=== PATIENT | male | born 1975 | race Caucasian/White ===

== ENCOUNTER 2019-03-03 12:09 | Inpatient (IN) | payer OTHER ==
[2019-03-03 12:45] LABS: ADD MAN DIFF? NO
[2019-03-03 12:52] LABS: BASOPHIL # 0.1 10^3/ul (0.0-0.1); BASOPHILS % 0.6 % (0.0-2.0); EOSINOPHILS # 0.3 10^3/ul (0.0-0.5); EOSINOPHILS % 2.5 % (0.0-7.0); HEMATOCRIT 37.4 % (42.0-52.0); HEMOGLOBIN 11.4 g/dl (14.0-18.0); LYMPHOCYTES # 2.3 10^3/ul (0.8-2.9); MEAN CORPUSCULAR HEMOGLOBIN 27.5 pg (29.0-33.0); MEAN CORPUSCULAR HGB CONC 30.5 g/dl (32.0-37.0); MEAN CORPUSCULAR VOLUME 90.1 fl (82.0-101.0); MEAN PLATELET VOLUME 11.2 fl (7.4-10.4); MONOCYTE # 0.6 10^3/ul (0.3-0.9); MONOCYTES % 6.3 % (0.0-11.0); NEUTROPHIL # 6.8 10^3/ul (1.6-7.5); NEUTROPHILS % 66.9 % (39.0-77.0); PLATELET COUNT 262 10^3/UL (140-415); RED BLOOD COUNT 4.15 10^6/ul (4.70-6.10)
[2019-03-03 12:52] LABS: WHITE BLOOD COUNT 10.1 10^3/ul (4.8-10.8)
[2019-03-03] MEDS ORDERED: ONDANSETRON 4 MG INJ IV ×2 (13:00→16:30)
[2019-03-03] MEDS ORDERED: ACETAMINOPHEN 325 MG TAB PO (13:00)
[2019-03-03 13:12] LABS: INR 0.97
[2019-03-03 13:13] LABS: PARTIAL THROMBOPLASTIN TIME 37.6 Sec (23.0-35.0)
[2019-03-03 13:18] LABS: ANION GAP 11 (5-13); BLOOD UREA NITROGEN 23 mg/dl (7-20); CALCIUM 9.5 mg/dl (8.4-10.2); CARBON DIOXIDE 26 mmol/L (21-31); CHLORIDE 105 mmol/L (97-110); CREATININE 0.55 mg/dl (0.61-1.24); Estimated GFR > 60 mL/min (>60); GLUCOSE 91 mg/dl (70-220); POTASSIUM 4.2 mmol/L (3.5-5.1); SODIUM 142 mmol/L (135-144)
[2019-03-03] MEDS ORDERED: NACL 0.9% 3 ML SYG IV (16:30)
[2019-03-03] MEDS ORDERED: DOCUSATE SODIUM 100 MG CAP PO ×2 (16:30→21:00)
[2019-03-03] MEDS ORDERED: LEVETIRACETAM (100 MG/ML PO SYG) GTB (16:30)
[2019-03-03] MEDS: LEVETIRACETAM (100 MG/ML) 5ML CUP GTB (21:00)
[2019-03-03] MEDS ORDERED: FAMOTIDINE 20 MG TAB PO (21:00)
[2019-03-03] MEDS: DOCUSATE SODIUM 10 MG/ML (10ML CUP) GTB (21:00)
[2019-03-03] MEDS: FAMOTIDINE 20 MG TAB GTB (21:00)
[2019-03-03] MEDS: CHLORHEXIDINE GLUCONATE 15 ML UD CUP MM (21:01)
[2019-03-04] MEDS: ACETAMINOPHEN 325 MG TAB PO ×3 (00:36→20:30)
[2019-03-04] MEDS: CHLORHEXIDINE GLUCONATE 15 ML UD CUP MM ×2 (04:30→15:36)
[2019-03-04] MEDS ORDERED: PENDING SANTYL ORDER FOR WOUND CARE XX (06:00)
[2019-03-04 06:21] LABS: ADD MAN DIFF? NO
[2019-03-04] MEDS: LEVETIRACETAM (100 MG/ML) 5ML CUP GTB ×3 (06:26→23:04)
[2019-03-04 06:28] LABS: WHITE BLOOD COUNT 10.4 10^3/ul (4.8-10.8)
[2019-03-04 06:28] LABS: BASOPHIL # 0.1 10^3/ul (0.0-0.1); BASOPHILS % 0.6 % (0.0-2.0); EOSINOPHILS # 0.2 10^3/ul (0.0-0.5); HEMATOCRIT 34.7 % (42.0-52.0); HEMOGLOBIN 10.8 g/dl (14.0-18.0); LYMPHOCYTES # 2.5 10^3/ul (0.8-2.9); LYMPHOCYTES % 23.6 % (15.0-51.0); MEAN CORPUSCULAR HGB CONC 31.1 g/dl (32.0-37.0); MEAN CORPUSCULAR VOLUME 89.9 fl (82.0-101.0); MEAN PLATELET VOLUME 11.4 fl (7.4-10.4); MONOCYTE # 0.7 10^3/ul (0.3-0.9); MONOCYTES % 6.8 % (0.0-11.0); NEUTROPHIL # 6.9 10^3/ul (1.6-7.5); NEUTROPHILS % 66.4 % (39.0-77.0); PLATELET COUNT 262 10^3/UL (140-415); RED BLOOD COUNT 3.86 10^6/ul (4.70-6.10); RED CELL DISTRIBUTION WIDTH 16.1 % (11.5-14.5)
[2019-03-04 06:54] LABS: ANION GAP 13 (5-13); BLOOD UREA NITROGEN 25 mg/dl (7-20); CALCIUM 9.1 mg/dl (8.4-10.2); CARBON DIOXIDE 23 mmol/L (21-31); CHLORIDE 108 mmol/L (97-110); CREATININE 0.62 mg/dl (0.61-1.24); Estimated GFR > 60 mL/min (>60); GLUCOSE 86 mg/dl (70-220); SODIUM 144 mmol/L (135-144)
[2019-03-04] MEDS ORDERED: LIDOCAINE 1%/EPI (1:100,000) (MDV) 20 ML INJ (07:00)
[2019-03-04] MEDS ORDERED: SILVER NITRATE SWAB TOP (07:00)
[2019-03-04] MEDS: MULTIVITAMINS/MINERALS TAB PO (09:43)
[2019-03-04] MEDS: ASPIRIN (EC) 81 MG TAB PO (09:43)
[2019-03-04] MEDS: FAMOTIDINE 20 MG TAB GTB ×2 (09:43→20:30)
[2019-03-04] MEDS: ASCORBIC ACID 500 MG TAB GTB (09:43)
[2019-03-04] MEDS: ENOXAPARIN 30 MG/0.3 ML SYG SC (10:06)
[2019-03-04] MEDS: SODIUM CHLORIDE 0.45% 500 ML BAG IV* (16:09)
[2019-03-04] MEDS: DOCUSATE SODIUM 10 MG/ML (10ML CUP) GTB (20:29)
[2019-03-04] MEDS: BALSAM PERU/CASTOR OIL 60 GM TUBE TOP (20:29)
[2019-03-05] MEDS: CHLORHEXIDINE GLUCONATE 15 ML UD CUP MM ×2 (04:47→16:43)
[2019-03-05] MEDS: LEVETIRACETAM (100 MG/ML) 5ML CUP GTB ×3 (05:57→21:21)
[2019-03-05 06:14] LABS: ADD MAN DIFF? NO
[2019-03-05 06:25] LABS: WHITE BLOOD COUNT 9.2 10^3/ul (4.8-10.8)
[2019-03-05 06:25] LABS: BASOPHIL # 0.1 10^3/ul (0.0-0.1); BASOPHILS % 0.8 % (0.0-2.0); EOSINOPHILS # 0.2 10^3/ul (0.0-0.5); EOSINOPHILS % 2.3 % (0.0-7.0); HEMATOCRIT 36.8 % (42.0-52.0); HEMOGLOBIN 11.3 g/dl (14.0-18.0); LYMPHOCYTES # 2.7 10^3/ul (0.8-2.9); LYMPHOCYTES % 29.5 % (15.0-51.0); MEAN CORPUSCULAR HEMOGLOBIN 27.4 pg (29.0-33.0); MEAN CORPUSCULAR HGB CONC 30.7 g/dl (32.0-37.0); MEAN CORPUSCULAR VOLUME 89.1 fl (82.0-101.0); MEAN PLATELET VOLUME 11.1 fl (7.4-10.4); MONOCYTE # 0.7 10^3/ul (0.3-0.9); MONOCYTES % 8.1 % (0.0-11.0); NEUTROPHIL # 5.4 10^3/ul (1.6-7.5); NEUTROPHILS % 58.8 % (39.0-77.0); PLATELET COUNT 268 10^3/UL (140-415); RED BLOOD COUNT 4.13 10^6/ul (4.70-6.10); RED CELL DISTRIBUTION WIDTH 16.2 % (11.5-14.5)
[2019-03-05 06:46] LABS: ANION GAP 11 (5-13); BLOOD UREA NITROGEN 28 mg/dl (7-20); CALCIUM 9.2 mg/dl (8.4-10.2); CARBON DIOXIDE 23 mmol/L (21-31); CHLORIDE 108 mmol/L (97-110); CREATININE 0.57 mg/dl (0.61-1.24); Estimated GFR > 60 mL/min (>60); GLUCOSE 106 mg/dl (70-220); POTASSIUM 3.9 mmol/L (3.5-5.1); SODIUM 142 mmol/L (135-144)
[2019-03-05] MEDS: ASPIRIN (EC) 81 MG TAB PO (09:08)
[2019-03-05] MEDS: MULTIVITAMINS/MINERALS TAB PO (09:08)
[2019-03-05] MEDS: BALSAM PERU/CASTOR OIL 60 GM TUBE TOP (09:08)
[2019-03-05] MEDS: FAMOTIDINE 20 MG TAB GTB ×2 (09:08→21:21)
[2019-03-05] MEDS: ASCORBIC ACID 500 MG TAB GTB (09:08)
[2019-03-05] MEDS: ENOXAPARIN 30 MG/0.3 ML SYG SC (09:15)
[2019-03-05 09:17] LABS: ADD UMIC YES; UR ASCORBIC ACID NEGATIVE (NEGATIVE); UR BACTERIA FEW /HPF (NONE SEEN); UR BILIRUBIN (Dip) NEGATIVE (NEGATIVE); UR BLOOD (Dip) NEGATIVE (NEGATIVE); UR CLARITY TURBID (CLEAR); UR COLOR YELLOW (YELLOW); UR GLUCOSE (Dip) NEGATIVE (NEGATIVE); UR KETONES (Dip) NEGATIVE (NEGATIVE); UR LEUKOCYTE ESTERASE (Dip) 2+ Leu/ul (NEGATIVE); UR NITRITE (Dip) POSITIVE (NEGATIVE); UR RBC > 182 /HPF (0-5); UR SPECIFIC GRAVITY (Dip) 1.022 (1.003-1.030); UR SQUAMOUS EPITHELIAL CELL MANY /HPF (FEW); UR TOTAL PROTEIN (Dip) 3+ mg/dl (NEGATIVE); UR UROBILINOGEN (Dip) NEGATIVE (NEGATIVE); UR WBC 118 /HPF (0-5)
[2019-03-05] MEDS: CEFTRIAXONE 1 GM/50 ML (PMX) 50 ML IVPB (10:52)
[2019-03-05] MEDS: morphine 2 MG INJ IV (13:17)
[2019-03-05] MEDS: LORAZEPAM 2 MG INJ IV (13:17)
[2019-03-05] MEDS: DOCUSATE SODIUM 10 MG/ML (10ML CUP) GTB (21:21)
[2019-03-05] MEDS: CEFEPIME 1GM/50 ML (PMX) 50 ML IVPB (21:21)
[2019-03-06] MEDS: CHLORHEXIDINE GLUCONATE 15 ML UD CUP MM ×2 (04:40→16:47)
[2019-03-06] MEDS ORDERED: VANCOMYCIN IV PER PHARMACY XX (05:00)
[2019-03-06] MEDS: VANCOMYCIN HCL 1.25 GM in SOD CHLORIDE 0.9% 250 ML IVPB (06:05)
[2019-03-06] MEDS: LEVETIRACETAM (100 MG/ML) 5ML CUP GTB ×3 (06:05→21:33)
[2019-03-06 08:36] LABS: ADD MAN DIFF? NO; BASOPHIL # 0.1 10^3/ul (0.0-0.1); BASOPHILS % 0.5 % (0.0-2.0); EOSINOPHILS # 0.2 10^3/ul (0.0-0.5); EOSINOPHILS % 2.2 % (0.0-7.0); HEMATOCRIT 31.9 % (42.0-52.0); HEMOGLOBIN 9.8 g/dl (14.0-18.0); LYMPHOCYTES # 1.4 10^3/ul (0.8-2.9); MEAN CORPUSCULAR HEMOGLOBIN 27.6 pg (29.0-33.0); MEAN CORPUSCULAR HGB CONC 30.7 g/dl (32.0-37.0); MEAN CORPUSCULAR VOLUME 89.9 fl (82.0-101.0); MEAN PLATELET VOLUME 10.3 fl (7.4-10.4); MONOCYTE # 0.6 10^3/ul (0.3-0.9); MONOCYTES % 6.7 % (0.0-11.0); NEUTROPHIL # 7.1 10^3/ul (1.6-7.5); NEUTROPHILS % 75.2 % (39.0-77.0); PLATELET COUNT 234 10^3/UL (140-415); RED BLOOD COUNT 3.55 10^6/ul (4.70-6.10); RED CELL DISTRIBUTION WIDTH 15.9 % (11.5-14.5)
[2019-03-06 08:36] LABS: WHITE BLOOD COUNT 9.4 10^3/ul (4.8-10.8)
[2019-03-06 09:00] LABS: ANION GAP 11 (5-13); BLOOD UREA NITROGEN 21 mg/dl (7-20); CALCIUM 8.6 mg/dl (8.4-10.2); CARBON DIOXIDE 23 mmol/L (21-31); CHLORIDE 107 mmol/L (97-110); CREATININE 0.47 mg/dl (0.61-1.24); Estimated GFR > 60 mL/min (>60); GLUCOSE 123 mg/dl (70-220); POTASSIUM 3.7 mmol/L (3.5-5.1); SODIUM 141 mmol/L (135-144)
[2019-03-06] MEDS: ENOXAPARIN 30 MG/0.3 ML SYG SC ×2 (09:00→09:06)
[2019-03-06] MEDS: ASPIRIN (EC) 81 MG TAB PO (09:02)
[2019-03-06] MEDS: CEFEPIME 1GM/50 ML (PMX) 50 ML IVPB ×2 (09:02→20:19)
[2019-03-06] MEDS: ASCORBIC ACID 500 MG TAB GTB (09:02)
[2019-03-06] MEDS: FAMOTIDINE 20 MG TAB GTB ×2 (09:02→20:19)
[2019-03-06] MEDS: BALSAM PERU/CASTOR OIL 60 GM TUBE TOP (09:03)
[2019-03-06] MEDS: MULTIVITAMINS/MINERALS TAB PO (09:05)
[2019-03-06] MEDS: LORAZEPAM 2 MG INJ IV ×2 (12:48→23:25)
[2019-03-06] MEDS: VANCOMYCIN 1 GM 250 ML IVPB (13:11)
[2019-03-06] MEDS: FLUCONAZOLE 100 MG TAB NGT (16:47)
[2019-03-06] MEDS: DOCUSATE SODIUM 10 MG/ML (10ML CUP) GTB (20:19)
[2019-03-07] MEDS: CHLORHEXIDINE GLUCONATE 15 ML UD CUP MM ×2 (04:01→16:11)
[2019-03-07] MEDS: ACETAMINOPHEN 325 MG TAB PO (04:02)
[2019-03-07] MEDS: LEVETIRACETAM (100 MG/ML) 5ML CUP GTB ×3 (05:31→22:11)
[2019-03-07] MEDS: VANCOMYCIN 1 GM 250 ML IVPB ×2 (05:31→17:13)
[2019-03-07 06:22] LABS: ADD MAN DIFF? NO
[2019-03-07 06:26] LABS: WHITE BLOOD COUNT 9.8 10^3/ul (4.8-10.8)
[2019-03-07 06:27] LABS: BASOPHILS % 0.3 % (0.0-2.0); EOSINOPHILS # 0.1 10^3/ul (0.0-0.5); EOSINOPHILS % 1.2 % (0.0-7.0); HEMATOCRIT 31.2 % (42.0-52.0); HEMOGLOBIN 9.8 g/dl (14.0-18.0); LYMPHOCYTES # 1.6 10^3/ul (0.8-2.9); LYMPHOCYTES % 15.9 % (15.0-51.0); MEAN CORPUSCULAR HEMOGLOBIN 27.5 pg (29.0-33.0); MEAN CORPUSCULAR HGB CONC 31.4 g/dl (32.0-37.0); MEAN CORPUSCULAR VOLUME 87.4 fl (82.0-101.0); MEAN PLATELET VOLUME 10.4 fl (7.4-10.4); MONOCYTE # 0.8 10^3/ul (0.3-0.9); MONOCYTES % 8.5 % (0.0-11.0); NEUTROPHIL # 7.3 10^3/ul (1.6-7.5); NEUTROPHILS % 73.7 % (39.0-77.0); PLATELET COUNT 268 10^3/UL (140-415); RED BLOOD COUNT 3.57 10^6/ul (4.70-6.10); RED CELL DISTRIBUTION WIDTH 15.9 % (11.5-14.5)
[2019-03-07 06:45] LABS: LACTIC ACID 1.4 mmol/L (0.5-2.0)
[2019-03-07 06:48] LABS: ANION GAP 12 (5-13); BLOOD UREA NITROGEN 19 mg/dl (7-20); CALCIUM 8.7 mg/dl (8.4-10.2); CARBON DIOXIDE 23 mmol/L (21-31); CHLORIDE 104 mmol/L (97-110); CREATININE 0.58 mg/dl (0.61-1.24); Estimated GFR > 60 mL/min (>60); GLUCOSE 123 mg/dl (70-220); POTASSIUM 3.7 mmol/L (3.5-5.1); SODIUM 139 mmol/L (135-144)
[2019-03-07] MEDS: MULTIVITAMINS/MINERALS TAB PO (08:46)
[2019-03-07] MEDS: ASCORBIC ACID 500 MG TAB GTB (08:46)
[2019-03-07] MEDS: FAMOTIDINE 20 MG TAB GTB ×2 (08:46→22:11)
[2019-03-07] MEDS: ASPIRIN (EC) 81 MG TAB PO (08:46)
[2019-03-07] MEDS: CEFEPIME 1GM/50 ML (PMX) 50 ML IVPB ×2 (08:46→22:11)
[2019-03-07] MEDS: FLUCONAZOLE 100 MG TAB NGT (08:47)
[2019-03-07] MEDS: BALSAM PERU/CASTOR OIL 60 GM TUBE TOP (08:49)
[2019-03-07] MEDS: ENOXAPARIN 30 MG/0.3 ML SYG SC (09:18)
[2019-03-07] MEDS: LIDOCAINE 1%/EPI (1:100,000) (MDV) 20 ML INJ (13:02)
[2019-03-07 18:03] LABS: VANCOMYCIN,TROUGH 9.6 ug/ml (10.0-20.0)
[2019-03-07] MEDS: DOCUSATE SODIUM 10 MG/ML (10ML CUP) GTB (22:11)
[2019-03-08] MEDS: CHLORHEXIDINE GLUCONATE 15 ML UD CUP MM ×2 (05:16→15:54)
[2019-03-08] MEDS: VANCOMYCIN HCL 1.25 GM in SOD CHLORIDE 0.9% 250 ML IVPB ×2 (05:50→17:03)
[2019-03-08] MEDS: LEVETIRACETAM (100 MG/ML) 5ML CUP GTB ×3 (05:50→21:21)
[2019-03-08 06:24] LABS: ADD MAN DIFF? NO
[2019-03-08 06:39] LABS: WHITE BLOOD COUNT 8.5 10^3/ul (4.8-10.8)
[2019-03-08 06:39] LABS: BASOPHIL # 0.1 10^3/ul (0.0-0.1); BASOPHILS % 0.6 % (0.0-2.0); EOSINOPHILS # 0.4 10^3/ul (0.0-0.5); EOSINOPHILS % 5.2 % (0.0-7.0); HEMOGLOBIN 9.9 g/dl (14.0-18.0); LYMPHOCYTES # 1.6 10^3/ul (0.8-2.9); LYMPHOCYTES % 19.3 % (15.0-51.0); MEAN CORPUSCULAR HGB CONC 30.9 g/dl (32.0-37.0); MEAN CORPUSCULAR VOLUME 90.7 fl (82.0-101.0); MEAN PLATELET VOLUME 11.5 fl (7.4-10.4); MONOCYTE # 0.9 10^3/ul (0.3-0.9); MONOCYTES % 10.7 % (0.0-11.0); NEUTROPHIL # 5.4 10^3/ul (1.6-7.5); NEUTROPHILS % 63.4 % (39.0-77.0); PLATELET COUNT 235 10^3/UL (140-415); RED BLOOD COUNT 3.53 10^6/ul (4.70-6.10); RED CELL DISTRIBUTION WIDTH 15.7 % (11.5-14.5)
[2019-03-08 06:41] LABS: LACTIC ACID 1.3 mmol/L (0.5-2.0)
[2019-03-08 06:47] LABS: ANION GAP 9 (5-13); BLOOD UREA NITROGEN 18 mg/dl (7-20); CARBON DIOXIDE 24 mmol/L (21-31); CHLORIDE 108 mmol/L (97-110); CREATININE 0.44 mg/dl (0.61-1.24); Estimated GFR > 60 mL/min (>60); GLUCOSE 104 mg/dl (70-220); POTASSIUM 4.5 mmol/L (3.5-5.1); SODIUM 141 mmol/L (135-144)
[2019-03-08] MEDS: ASPIRIN (EC) 81 MG TAB PO (09:16)
[2019-03-08] MEDS: MULTIVITAMINS/MINERALS TAB PO (09:16)
[2019-03-08] MEDS: ASCORBIC ACID 500 MG TAB GTB (09:16)
[2019-03-08] MEDS: CEFEPIME 1GM/50 ML (PMX) 50 ML IVPB ×2 (09:16→21:22)
[2019-03-08] MEDS: FAMOTIDINE 20 MG TAB GTB ×2 (09:16→21:21)
[2019-03-08] MEDS: FLUCONAZOLE 100 MG TAB NGT (09:16)
[2019-03-08] MEDS: BALSAM PERU/CASTOR OIL 60 GM TUBE TOP (09:17)
[2019-03-08] MEDS: ENOXAPARIN 30 MG/0.3 ML SYG SC (09:20)
[2019-03-08] MEDS: ACETAMINOPHEN 325 MG TAB PO (13:19)
[2019-03-08] MEDS: DOCUSATE SODIUM 10 MG/ML (10ML CUP) GTB (21:21)
[2019-03-09] MEDS: LORAZEPAM 2 MG INJ IV (03:58)
[2019-03-09] MEDS: CHLORHEXIDINE GLUCONATE 15 ML UD CUP MM ×2 (03:58→16:59)
[2019-03-09 05:30] LABS: ADD MAN DIFF? NO
[2019-03-09 05:42] LABS: WHITE BLOOD COUNT 8.7 10^3/ul (4.8-10.8)
[2019-03-09 05:42] LABS: BASOPHIL # 0.1 10^3/ul (0.0-0.1); BASOPHILS % 0.6 % (0.0-2.0); EOSINOPHILS # 0.5 10^3/ul (0.0-0.5); EOSINOPHILS % 5.8 % (0.0-7.0); HEMOGLOBIN 10.1 g/dl (14.0-18.0); LYMPHOCYTES # 2.1 10^3/ul (0.8-2.9); LYMPHOCYTES % 24.2 % (15.0-51.0); MEAN CORPUSCULAR HEMOGLOBIN 28.1 pg (29.0-33.0); MEAN CORPUSCULAR HGB CONC 31.6 g/dl (32.0-37.0); MEAN CORPUSCULAR VOLUME 89.1 fl (82.0-101.0); MEAN PLATELET VOLUME 11.2 fl (7.4-10.4); MONOCYTE # 0.8 10^3/ul (0.3-0.9); MONOCYTES % 9.3 % (0.0-11.0); NEUTROPHIL # 5.2 10^3/ul (1.6-7.5); NEUTROPHILS % 59.5 % (39.0-77.0); PLATELET COUNT 247 10^3/UL (140-415); RED BLOOD COUNT 3.59 10^6/ul (4.70-6.10); RED CELL DISTRIBUTION WIDTH 15.5 % (11.5-14.5)
[2019-03-09] MEDS: LEVETIRACETAM (100 MG/ML) 5ML CUP GTB ×3 (05:48→20:19)
[2019-03-09] MEDS: VANCOMYCIN HCL 1.25 GM in SOD CHLORIDE 0.9% 250 ML IVPB ×2 (05:48→17:01)
[2019-03-09 06:12] LABS: ANION GAP 11 (5-13); BLOOD UREA NITROGEN 15 mg/dl (7-20); CALCIUM 9.6 mg/dl (8.4-10.2); CARBON DIOXIDE 25 mmol/L (21-31); CHLORIDE 105 mmol/L (97-110); CREATININE 0.45 mg/dl (0.61-1.24); Estimated GFR > 60 mL/min (>60); GLUCOSE 97 mg/dl (70-220); POTASSIUM 3.9 mmol/L (3.5-5.1); SODIUM 141 mmol/L (135-144)
[2019-03-09] MEDS: ASCORBIC ACID 500 MG TAB GTB (09:37)
[2019-03-09] MEDS: CEFEPIME 1GM/50 ML (PMX) 50 ML IVPB ×2 (09:37→20:19)
[2019-03-09] MEDS: FAMOTIDINE 20 MG TAB GTB ×2 (09:37→20:19)
[2019-03-09] MEDS: ASPIRIN (EC) 81 MG TAB PO (09:37)
[2019-03-09] MEDS: FLUCONAZOLE 100 MG TAB NGT (09:37)
[2019-03-09] MEDS: MULTIVITAMINS/MINERALS TAB PO (09:37)
[2019-03-09] MEDS: BALSAM PERU/CASTOR OIL 60 GM TUBE TOP (09:38)
[2019-03-09] MEDS: ENOXAPARIN 30 MG/0.3 ML SYG SC (09:48)
[2019-03-09] MEDS: ACETAMINOPHEN 325 MG TAB PO (13:29)
[2019-03-09 17:04] LABS: VANCOMYCIN,TROUGH 15.3 ug/ml (10.0-20.0)
[2019-03-09] MEDS: DOCUSATE SODIUM 10 MG/ML (10ML CUP) GTB (20:39)
[2019-03-10] MEDS: CHLORHEXIDINE GLUCONATE 15 ML UD CUP MM ×2 (05:30→15:54)
[2019-03-10] MEDS: VANCOMYCIN HCL 1.25 GM in SOD CHLORIDE 0.9% 250 ML IVPB (05:30)
[2019-03-10] MEDS: LEVETIRACETAM (100 MG/ML) 5ML CUP GTB ×3 (05:30→21:44)
[2019-03-10 05:59] LABS: ADD MAN DIFF? NO
[2019-03-10 06:02] LABS: BASOPHIL # 0.1 10^3/ul (0.0-0.1); BASOPHILS % 0.6 % (0.0-2.0); EOSINOPHILS # 0.5 10^3/ul (0.0-0.5); HEMATOCRIT 34.1 % (42.0-52.0); HEMOGLOBIN 10.6 g/dl (14.0-18.0); LYMPHOCYTES # 1.7 10^3/ul (0.8-2.9); LYMPHOCYTES % 17.9 % (15.0-51.0); MEAN CORPUSCULAR HEMOGLOBIN 27.7 pg (29.0-33.0); MEAN CORPUSCULAR HGB CONC 31.1 g/dl (32.0-37.0); MEAN PLATELET VOLUME 11.1 fl (7.4-10.4); MONOCYTE # 0.7 10^3/ul (0.3-0.9); MONOCYTES % 7.9 % (0.0-11.0); NEUTROPHIL # 6.4 10^3/ul (1.6-7.5); NEUTROPHILS % 67.7 % (39.0-77.0); PLATELET COUNT 272 10^3/UL (140-415); RED BLOOD COUNT 3.83 10^6/ul (4.70-6.10); RED CELL DISTRIBUTION WIDTH 15.6 % (11.5-14.5)
[2019-03-10 06:02] LABS: WHITE BLOOD COUNT 9.4 10^3/ul (4.8-10.8)
[2019-03-10 07:01] LABS: ANION GAP 12 (5-13); BLOOD UREA NITROGEN 19 mg/dl (7-20); CALCIUM 9.4 mg/dl (8.4-10.2); CARBON DIOXIDE 24 mmol/L (21-31); CHLORIDE 105 mmol/L (97-110); CREATININE 0.47 mg/dl (0.61-1.24); Estimated GFR > 60 mL/min (>60); GLUCOSE 114 mg/dl (70-220); SODIUM 141 mmol/L (135-144)
[2019-03-10] MEDS: ASCORBIC ACID 500 MG TAB GTB (08:48)
[2019-03-10] MEDS: CEFEPIME 1GM/50 ML (PMX) 50 ML IVPB ×2 (08:48→21:44)
[2019-03-10] MEDS: MULTIVITAMINS/MINERALS TAB PO (08:48)
[2019-03-10] MEDS: FLUCONAZOLE 100 MG TAB NGT (08:48)
[2019-03-10] MEDS: FAMOTIDINE 20 MG TAB GTB ×2 (08:48→21:44)
[2019-03-10] MEDS: ASPIRIN (EC) 81 MG TAB PO (08:48)
[2019-03-10] MEDS: BALSAM PERU/CASTOR OIL 60 GM TUBE TOP (08:49)
[2019-03-10] MEDS: ENOXAPARIN 30 MG/0.3 ML SYG SC (09:34)
[2019-03-10] MEDS: DOCUSATE SODIUM 10 MG/ML (10ML CUP) GTB (21:44)
[2019-03-10] MEDS: AMPICILLIN 500 MG CAP PO (22:39)
[2019-03-11] MEDS: CHLORHEXIDINE GLUCONATE 15 ML UD CUP MM ×2 (05:51→17:28)
[2019-03-11] MEDS: LEVETIRACETAM (100 MG/ML) 5ML CUP GTB ×3 (05:51→21:55)
[2019-03-11] MEDS: AMPICILLIN 500 MG CAP PO ×3 (05:51→21:54)
[2019-03-11] MEDS: ASCORBIC ACID 500 MG TAB GTB (09:03)
[2019-03-11] MEDS: TERBINAFINE 250 MG TAB GTB (09:03)
[2019-03-11] MEDS: ASPIRIN (EC) 81 MG TAB PO (09:03)
[2019-03-11] MEDS: FAMOTIDINE 20 MG TAB GTB ×2 (09:03→21:19)
[2019-03-11] MEDS: CEFEPIME 1GM/50 ML (PMX) 50 ML IVPB ×2 (09:03→21:19)
[2019-03-11] MEDS: MULTIVITAMINS/MINERALS TAB PO (09:03)
[2019-03-11] MEDS: BALSAM PERU/CASTOR OIL 60 GM TUBE TOP (09:05)
[2019-03-11] MEDS: ENOXAPARIN 30 MG/0.3 ML SYG SC (09:08)
[2019-03-11 12:02] LABS: PROCALCITONIN <0.10 ng/mL (<0.10)
[2019-03-11] MEDS: METOCLOPRAMIDE 10 MG INJ IV ×2 (17:28→23:50)
[2019-03-11] MEDS: MAGNESIUM HYDROXIDE 30ML CUP PO (17:40)
[2019-03-11] MEDS: MAGNESIUM CITRATE 300 ML BTL PO (20:00)
[2019-03-11] MEDS: DOCUSATE SODIUM 10 MG/ML (10ML CUP) GTB (21:18)
[2019-03-11] MEDS: NA PHOSPHATE/BIPHOS 133 ML ENEMA PR (21:18)
[2019-03-12] MEDS: CHLORHEXIDINE GLUCONATE 15 ML UD CUP MM ×2 (04:44→15:18)
[2019-03-12] MEDS: LEVETIRACETAM (100 MG/ML) 5ML CUP GTB ×3 (05:57→22:27)
[2019-03-12] MEDS: METOCLOPRAMIDE 10 MG INJ IV ×3 (05:57→17:57)
[2019-03-12] MEDS: AMPICILLIN 500 MG CAP PO ×3 (05:57→22:27)
[2019-03-12] MEDS: ASCORBIC ACID 500 MG TAB GTB (09:00)
[2019-03-12] MEDS: CEFEPIME 1GM/50 ML (PMX) 50 ML IVPB ×2 (10:07→20:45)
[2019-03-12] MEDS: BALSAM PERU/CASTOR OIL 60 GM TUBE TOP (10:10)
[2019-03-12] MEDS: FAMOTIDINE 20 MG TAB GTB ×2 (10:11→20:45)
[2019-03-12] MEDS: TERBINAFINE 250 MG TAB GTB (10:11)
[2019-03-12] MEDS: ASPIRIN (EC) 81 MG TAB PO (10:11)
[2019-03-12] MEDS: MULTIVITAMINS/MINERALS TAB PO (10:11)
[2019-03-12] MEDS: ENOXAPARIN 30 MG/0.3 ML SYG SC (10:13)
[2019-03-12] MEDS: IOHEXOL 14.3 MG(I)/ML (ADULT) BTL PO (11:00)
[2019-03-12] MEDS ORDERED: IOHEXOL 14.3 MG(I)/ML (ADULT) BTL PO (11:30)
[2019-03-12] MEDS: DOCUSATE SODIUM 10 MG/ML (10ML CUP) GTB (20:45)
[2019-03-13] MEDS: CHLORHEXIDINE GLUCONATE 15 ML UD CUP MM ×2 (04:35→17:43)
[2019-03-13] MEDS: LEVETIRACETAM (100 MG/ML) 5ML CUP GTB ×3 (05:35→21:42)
[2019-03-13] MEDS: AMPICILLIN 500 MG CAP PO ×2 (05:35→13:34)
[2019-03-13] MEDS: METOCLOPRAMIDE 10 MG INJ IV ×5 (05:35→23:51)
[2019-03-13 06:24] LABS: ADD MAN DIFF? NO
[2019-03-13 06:30] LABS: BASOPHIL # 0.1 10^3/ul (0.0-0.1); BASOPHILS % 0.5 % (0.0-2.0); EOSINOPHILS # 0.3 10^3/ul (0.0-0.5); EOSINOPHILS % 2.6 % (0.0-7.0); HEMATOCRIT 32.6 % (42.0-52.0); HEMOGLOBIN 10.4 g/dl (14.0-18.0); LYMPHOCYTES # 2.1 10^3/ul (0.8-2.9); LYMPHOCYTES % 18.9 % (15.0-51.0); MEAN CORPUSCULAR HGB CONC 31.9 g/dl (32.0-37.0); MEAN CORPUSCULAR VOLUME 87.9 fl (82.0-101.0); MEAN PLATELET VOLUME 10.7 fl (7.4-10.4); MONOCYTE # 0.8 10^3/ul (0.3-0.9); MONOCYTES % 7.3 % (0.0-11.0); NEUTROPHIL # 7.7 10^3/ul (1.6-7.5); NEUTROPHILS % 70.3 % (39.0-77.0); PLATELET COUNT 282 10^3/UL (140-415); RED BLOOD COUNT 3.71 10^6/ul (4.70-6.10); RED CELL DISTRIBUTION WIDTH 15.9 % (11.5-14.5)
[2019-03-13 07:06] LABS: ANION GAP 10 (5-13); BLOOD UREA NITROGEN 27 mg/dl (7-20); CALCIUM 9.1 mg/dl (8.4-10.2); CARBON DIOXIDE 26 mmol/L (21-31); CHLORIDE 107 mmol/L (97-110); CREATININE 0.47 mg/dl (0.61-1.24); Estimated GFR > 60 mL/min (>60); GLUCOSE 125 mg/dl (70-220); POTASSIUM 3.3 mmol/L (3.5-5.1); SODIUM 143 mmol/L (135-144)
[2019-03-13] MEDS: ASCORBIC ACID 500 MG TAB GTB (10:13)
[2019-03-13] MEDS: FAMOTIDINE 20 MG TAB GTB ×2 (10:13→20:55)
[2019-03-13] MEDS: ASPIRIN (EC) 81 MG TAB PO (10:13)
[2019-03-13] MEDS: MULTIVITAMINS/MINERALS TAB PO (10:13)
[2019-03-13] MEDS: TERBINAFINE 250 MG TAB GTB (10:13)
[2019-03-13] MEDS: CEFEPIME 1GM/50 ML (PMX) 50 ML IVPB (10:14)
[2019-03-13] MEDS: ENOXAPARIN 30 MG/0.3 ML SYG SC (10:22)
[2019-03-13] MEDS: BALSAM PERU/CASTOR OIL 60 GM TUBE TOP (12:20)
[2019-03-13] MEDS: POLYETHYLENE GLYCOL 17 GM PACKET GTB (20:55)
[2019-03-13] MEDS: DOCUSATE SODIUM 10 MG/ML (10ML CUP) GTB (20:55)
[2019-03-14] MEDS: CHLORHEXIDINE GLUCONATE 15 ML UD CUP MM ×2 (05:29→17:06)
[2019-03-14] MEDS: METOCLOPRAMIDE 10 MG INJ IV ×3 (05:54→17:07)
[2019-03-14] MEDS: LEVETIRACETAM (100 MG/ML) 5ML CUP GTB ×3 (05:54→21:45)
[2019-03-14] MEDS: FAMOTIDINE 20 MG TAB GTB ×2 (09:33→21:45)
[2019-03-14] MEDS: POLYETHYLENE GLYCOL 17 GM PACKET GTB ×2 (09:33→21:46)
[2019-03-14] MEDS: TERBINAFINE 250 MG TAB GTB (09:33)
[2019-03-14] MEDS: MULTIVITAMINS/MINERALS TAB PO (09:33)
[2019-03-14] MEDS: ASPIRIN (EC) 81 MG TAB PO (09:33)
[2019-03-14] MEDS: ASCORBIC ACID 500 MG TAB GTB (09:33)
[2019-03-14] MEDS: ENOXAPARIN 30 MG/0.3 ML SYG SC (09:49)
[2019-03-14] MEDS: BALSAM PERU/CASTOR OIL 60 GM TUBE TOP (09:52)
[2019-03-14] MEDS: POTASSIUM CHLORIDE (SR) 20 MEQ TAB PO (14:26)
[2019-03-14] MEDS: DOCUSATE SODIUM 10 MG/ML (10ML CUP) GTB (21:45)
[2019-03-15] MEDS: METOCLOPRAMIDE 10 MG INJ IV ×4 (00:46→17:29)
[2019-03-15 05:17] LABS: ADD MAN DIFF? NO
[2019-03-15 05:25] LABS: WHITE BLOOD COUNT 12.4 10^3/ul (4.8-10.8)
[2019-03-15 05:25] LABS: BASOPHIL # 0.1 10^3/ul (0.0-0.1); BASOPHILS % 0.4 % (0.0-2.0); EOSINOPHILS # 0.3 10^3/ul (0.0-0.5); EOSINOPHILS % 2.3 % (0.0-7.0); HEMATOCRIT 33.9 % (42.0-52.0); HEMOGLOBIN 10.5 g/dl (14.0-18.0); LYMPHOCYTES % 15.8 % (15.0-51.0); MEAN CORPUSCULAR HEMOGLOBIN 27.8 pg (29.0-33.0); MEAN CORPUSCULAR VOLUME 89.7 fl (82.0-101.0); MONOCYTE # 0.6 10^3/ul (0.3-0.9); MONOCYTES % 4.8 % (0.0-11.0); NEUTROPHIL # 9.5 10^3/ul (1.6-7.5); NEUTROPHILS % 76.5 % (39.0-77.0); PLATELET COUNT 231 10^3/UL (140-415); POSITIVE DIFF @See below; RED BLOOD COUNT 3.78 10^6/ul (4.70-6.10); RED CELL DISTRIBUTION WIDTH 15.6 % (11.5-14.5)
[2019-03-15] MEDS: LEVETIRACETAM (100 MG/ML) 5ML CUP GTB ×3 (05:32→21:28)
[2019-03-15] MEDS: CHLORHEXIDINE GLUCONATE 15 ML UD CUP MM ×2 (05:32→17:29)
[2019-03-15 07:14] LABS: ANION GAP 10 (5-13); BLOOD UREA NITROGEN 19 mg/dl (7-20); CALCIUM 9.2 mg/dl (8.4-10.2); CARBON DIOXIDE 24 mmol/L (21-31); CHLORIDE 107 mmol/L (97-110); CREATININE 0.45 mg/dl (0.61-1.24); Estimated GFR > 60 mL/min (>60); GLUCOSE 118 mg/dl (70-220); POTASSIUM 4.2 mmol/L (3.5-5.1); SODIUM 141 mmol/L (135-144)
[2019-03-15] MEDS: ASCORBIC ACID 500 MG TAB GTB (09:14)
[2019-03-15] MEDS: FAMOTIDINE 20 MG TAB GTB ×2 (09:14→21:27)
[2019-03-15] MEDS: MULTIVITAMINS/MINERALS TAB PO (09:14)
[2019-03-15] MEDS: POLYETHYLENE GLYCOL 17 GM PACKET GTB ×2 (09:14→21:27)
[2019-03-15] MEDS: TERBINAFINE 250 MG TAB GTB (09:14)
[2019-03-15] MEDS: ASPIRIN (EC) 81 MG TAB PO (09:14)
[2019-03-15] MEDS: BALSAM PERU/CASTOR OIL 60 GM TUBE TOP (09:15)
[2019-03-15] MEDS: ENOXAPARIN 30 MG/0.3 ML SYG SC (09:23)
[2019-03-15] MEDS: DOCUSATE SODIUM 10 MG/ML (10ML CUP) GTB (21:27)
[2019-03-16] MEDS: METOCLOPRAMIDE 10 MG INJ IV ×4 (01:15→17:12)
[2019-03-16] MEDS: CHLORHEXIDINE GLUCONATE 15 ML UD CUP MM ×2 (05:51→17:12)
[2019-03-16] MEDS: LEVETIRACETAM (100 MG/ML) 5ML CUP GTB ×3 (05:52→21:30)
[2019-03-16 06:18] LABS: WHITE BLOOD COUNT 10.4 10^3/ul (4.8-10.8)
[2019-03-16 06:18] LABS: ADD MAN DIFF? NO; BASOPHIL # 0.1 10^3/ul (0.0-0.1); BASOPHILS % 0.6 % (0.0-2.0); EOSINOPHILS # 0.4 10^3/ul (0.0-0.5); EOSINOPHILS % 3.8 % (0.0-7.0); HEMATOCRIT 33.8 % (42.0-52.0); HEMOGLOBIN 10.4 g/dl (14.0-18.0); LYMPHOCYTES # 1.7 10^3/ul (0.8-2.9); LYMPHOCYTES % 16.5 % (15.0-51.0); MEAN CORPUSCULAR HEMOGLOBIN 27.8 pg (29.0-33.0); MEAN CORPUSCULAR HGB CONC 30.8 g/dl (32.0-37.0); MEAN CORPUSCULAR VOLUME 90.4 fl (82.0-101.0); MEAN PLATELET VOLUME 11.3 fl (7.4-10.4); MONOCYTE # 0.7 10^3/ul (0.3-0.9); MONOCYTES % 6.3 % (0.0-11.0); NEUTROPHIL # 7.5 10^3/ul (1.6-7.5); NEUTROPHILS % 72.1 % (39.0-77.0); PLATELET COUNT 278 10^3/UL (140-415); RED BLOOD COUNT 3.74 10^6/ul (4.70-6.10); RED CELL DISTRIBUTION WIDTH 15.7 % (11.5-14.5)
[2019-03-16 06:54] LABS: ANION GAP 11 (5-13); BLOOD UREA NITROGEN 18 mg/dl (7-20); CALCIUM 9.3 mg/dl (8.4-10.2); CARBON DIOXIDE 26 mmol/L (21-31); CHLORIDE 105 mmol/L (97-110); CREATININE 0.46 mg/dl (0.61-1.24); Estimated GFR > 60 mL/min (>60); GLUCOSE 115 mg/dl (70-220); POTASSIUM 4.1 mmol/L (3.5-5.1); SODIUM 142 mmol/L (135-144)
[2019-03-16] MEDS: MULTIVITAMINS/MINERALS TAB PO (08:25)
[2019-03-16] MEDS: TERBINAFINE 250 MG TAB GTB (08:25)
[2019-03-16] MEDS: FAMOTIDINE 20 MG TAB GTB ×2 (08:25→21:29)
[2019-03-16] MEDS: POLYETHYLENE GLYCOL 17 GM PACKET GTB ×2 (08:26→21:00)
[2019-03-16] MEDS: ASCORBIC ACID 500 MG TAB GTB (08:26)
[2019-03-16] MEDS: ASPIRIN (EC) 81 MG TAB PO (08:26)
[2019-03-16] MEDS: BALSAM PERU/CASTOR OIL 60 GM TUBE TOP (08:31)
[2019-03-16] MEDS: ENOXAPARIN 30 MG/0.3 ML SYG SC (08:31)
[2019-03-16] MEDS: SOD CHLORIDE 0.9% 250 ML IV (12:51)
[2019-03-16] MEDS: DOCUSATE SODIUM 10 MG/ML (10ML CUP) GTB (21:00)
[2019-03-17] MEDS: METOCLOPRAMIDE 10 MG INJ IV ×4 (00:15→17:03)
[2019-03-17 05:39] LABS: ADD MAN DIFF? NO
[2019-03-17 05:47] LABS: BASOPHIL # 0.1 10^3/ul (0.0-0.1); BASOPHILS % 0.5 % (0.0-2.0); EOSINOPHILS # 0.6 10^3/ul (0.0-0.5); EOSINOPHILS % 5.1 % (0.0-7.0); HEMATOCRIT 33.6 % (42.0-52.0); HEMOGLOBIN 10.5 g/dl (14.0-18.0); LYMPHOCYTES # 2.2 10^3/ul (0.8-2.9); LYMPHOCYTES % 19.6 % (15.0-51.0); MEAN CORPUSCULAR HEMOGLOBIN 27.5 pg (29.0-33.0); MEAN CORPUSCULAR HGB CONC 31.3 g/dl (32.0-37.0); MEAN PLATELET VOLUME 11.3 fl (7.4-10.4); MONOCYTE # 0.8 10^3/ul (0.3-0.9); MONOCYTES % 7.5 % (0.0-11.0); NEUTROPHIL # 7.4 10^3/ul (1.6-7.5); NEUTROPHILS % 66.8 % (39.0-77.0); PLATELET COUNT 284 10^3/UL (140-415); RED BLOOD COUNT 3.82 10^6/ul (4.70-6.10); RED CELL DISTRIBUTION WIDTH 15.7 % (11.5-14.5)
[2019-03-17] MEDS: CHLORHEXIDINE GLUCONATE 15 ML UD CUP MM ×2 (06:01→17:03)
[2019-03-17] MEDS: LEVETIRACETAM (100 MG/ML) 5ML CUP GTB ×3 (06:02→22:25)
[2019-03-17 06:13] LABS: ANION GAP 11 (5-13); BLOOD UREA NITROGEN 19 mg/dl (7-20); CALCIUM 9.3 mg/dl (8.4-10.2); CARBON DIOXIDE 27 mmol/L (21-31); CHLORIDE 102 mmol/L (97-110); Estimated GFR > 60 mL/min (>60); GLUCOSE 115 mg/dl (70-220); MAGNESIUM 2.2 mg/dl (1.7-2.5); POTASSIUM 4.1 mmol/L (3.5-5.1); SODIUM 140 mmol/L (135-144)
[2019-03-17] MEDS: POLYETHYLENE GLYCOL 17 GM PACKET GTB ×2 (07:59→21:00)
[2019-03-17] MEDS: MULTIVITAMINS/MINERALS TAB PO (07:59)
[2019-03-17] MEDS: ASPIRIN (EC) 81 MG TAB PO (08:00)
[2019-03-17] MEDS: TERBINAFINE 250 MG TAB GTB (08:00)
[2019-03-17] MEDS: FAMOTIDINE 20 MG TAB GTB ×2 (08:00→22:25)
[2019-03-17] MEDS: ASCORBIC ACID 500 MG TAB GTB (08:00)
[2019-03-17] MEDS: BALSAM PERU/CASTOR OIL 60 GM TUBE TOP (08:00)
[2019-03-17] MEDS: ENOXAPARIN 30 MG/0.3 ML SYG SC (08:05)
[2019-03-17] MEDS: DOCUSATE SODIUM 10 MG/ML (10ML CUP) GTB (21:00)
[2019-03-18] MEDS: METOCLOPRAMIDE 10 MG INJ IV ×4 (00:17→17:28)
[2019-03-18] MEDS: ACETAMINOPHEN 325 MG TAB PO ×2 (00:17→16:07)
[2019-03-18] MEDS: CHLORHEXIDINE GLUCONATE 15 ML UD CUP MM ×2 (05:50→15:56)
[2019-03-18] MEDS: LEVETIRACETAM (100 MG/ML) 5ML CUP GTB ×3 (05:50→20:37)
[2019-03-18 05:52] LABS: ADD MAN DIFF? NO
[2019-03-18 06:07] LABS: WHITE BLOOD COUNT 12.4 10^3/ul (4.8-10.8)
[2019-03-18 06:07] LABS: BASOPHIL # 0.1 10^3/ul (0.0-0.1); BASOPHILS % 0.6 % (0.0-2.0); EOSINOPHILS # 0.5 10^3/ul (0.0-0.5); EOSINOPHILS % 4.2 % (0.0-7.0); HEMATOCRIT 34.5 % (42.0-52.0); HEMOGLOBIN 10.9 g/dl (14.0-18.0); LYMPHOCYTES % 23.9 % (15.0-51.0); MEAN CORPUSCULAR HEMOGLOBIN 27.7 pg (29.0-33.0); MEAN CORPUSCULAR HGB CONC 31.6 g/dl (32.0-37.0); MEAN CORPUSCULAR VOLUME 87.6 fl (82.0-101.0); MEAN PLATELET VOLUME 11.3 fl (7.4-10.4); MONOCYTES % 8.1 % (0.0-11.0); NEUTROPHIL # 7.7 10^3/ul (1.6-7.5); NEUTROPHILS % 62.5 % (39.0-77.0); PLATELET COUNT 313 10^3/UL (140-415); RED BLOOD COUNT 3.94 10^6/ul (4.70-6.10); RED CELL DISTRIBUTION WIDTH 15.3 % (11.5-14.5)
[2019-03-18 06:42] LABS: ANION GAP 9 (5-13); BLOOD UREA NITROGEN 21 mg/dl (7-20); CALCIUM 9.4 mg/dl (8.4-10.2); CARBON DIOXIDE 26 mmol/L (21-31); CHLORIDE 102 mmol/L (97-110); CREATININE 0.53 mg/dl (0.61-1.24); Estimated GFR > 60 mL/min (>60); GLUCOSE 100 mg/dl (70-220); SODIUM 137 mmol/L (135-144)
[2019-03-18] MEDS: POLYETHYLENE GLYCOL 17 GM PACKET GTB ×2 (09:00→20:38)
[2019-03-18] MEDS: ALBUTEROL/IPRATROPIUM (NEB) 3 ML AMP HHN (09:02)
[2019-03-18] MEDS: TERBINAFINE 250 MG TAB GTB (09:19)
[2019-03-18] MEDS: ASPIRIN (EC) 81 MG TAB PO (09:19)
[2019-03-18] MEDS: MULTIVITAMINS/MINERALS TAB PO (09:19)
[2019-03-18] MEDS: FAMOTIDINE 20 MG TAB GTB ×2 (09:19→20:37)
[2019-03-18] MEDS: ASCORBIC ACID 500 MG TAB GTB (09:20)
[2019-03-18] MEDS: ENOXAPARIN 30 MG/0.3 ML SYG SC (09:29)
[2019-03-18] MEDS: BALSAM PERU/CASTOR OIL 60 GM TUBE TOP (12:25)
[2019-03-18] MEDS: VANCOMYCIN HCL 250 MG/5ML POSYG PO ×2 (14:17→17:28)
[2019-03-18] MEDS: DOCUSATE SODIUM 10 MG/ML (10ML CUP) GTB (20:38)
[2019-03-19] MEDS: METOCLOPRAMIDE 10 MG INJ IV ×4 (00:15→17:37)
[2019-03-19] MEDS: VANCOMYCIN HCL 250 MG/5ML POSYG PO ×4 (00:15→17:44)
[2019-03-19] MEDS: CHLORHEXIDINE GLUCONATE 15 ML UD CUP MM ×2 (04:47→13:47)
[2019-03-19] MEDS: LEVETIRACETAM (100 MG/ML) 5ML CUP GTB ×2 (05:39→13:46)
[2019-03-19 06:54] LABS: ADD MAN DIFF? NO
[2019-03-19 06:58] LABS: BASOPHIL # 0.1 10^3/ul (0.0-0.1); BASOPHILS % 0.6 % (0.0-2.0); EOSINOPHILS # 0.4 10^3/ul (0.0-0.5); EOSINOPHILS % 4.1 % (0.0-7.0); HEMATOCRIT 36.2 % (42.0-52.0); HEMOGLOBIN 11.3 g/dl (14.0-18.0); LYMPHOCYTES # 1.6 10^3/ul (0.8-2.9); MEAN CORPUSCULAR HEMOGLOBIN 27.6 pg (29.0-33.0); MEAN CORPUSCULAR HGB CONC 31.2 g/dl (32.0-37.0); MEAN CORPUSCULAR VOLUME 88.3 fl (82.0-101.0); MEAN PLATELET VOLUME 11.5 fl (7.4-10.4); MONOCYTE # 0.9 10^3/ul (0.3-0.9); MONOCYTES % 8.5 % (0.0-11.0); NEUTROPHIL # 7.2 10^3/ul (1.6-7.5); NEUTROPHILS % 70.3 % (39.0-77.0); PLATELET COUNT 286 10^3/UL (140-415); RED CELL DISTRIBUTION WIDTH 15.5 % (11.5-14.5)
[2019-03-19 06:58] LABS: WHITE BLOOD COUNT 10.2 10^3/ul (4.8-10.8)
[2019-03-19 07:27] LABS: ANION GAP 13 (5-13); BLOOD UREA NITROGEN 20 mg/dl (7-20); CALCIUM 9.7 mg/dl (8.4-10.2); CARBON DIOXIDE 26 mmol/L (21-31); CHLORIDE 102 mmol/L (97-110); CREATININE 0.49 mg/dl (0.61-1.24); Estimated GFR > 60 mL/min (>60); GLUCOSE 115 mg/dl (70-220); SODIUM 141 mmol/L (135-144)
[2019-03-19] MEDS: POLYETHYLENE GLYCOL 17 GM PACKET GTB (09:01)
[2019-03-19] MEDS: MULTIVITAMINS/MINERALS TAB PO (09:02)
[2019-03-19] MEDS: FAMOTIDINE 20 MG TAB GTB (09:02)
[2019-03-19] MEDS: ASCORBIC ACID 500 MG TAB GTB (09:02)
[2019-03-19] MEDS: BALSAM PERU/CASTOR OIL 60 GM TUBE TOP (09:02)
[2019-03-19] MEDS: TERBINAFINE 250 MG TAB GTB (09:02)
[2019-03-19] MEDS: ASPIRIN (EC) 81 MG TAB PO (09:02)
[2019-03-19] MEDS: ENOXAPARIN 30 MG/0.3 ML SYG SC (09:08)
== END 2019-03-19 20:26 | DRG 870 ==
LOC: 6WM 12:34 → E/R 12:09
PROC: 5A1955Z Respiratory Ventilation, Greater than 96 Consecutive Hours (ICD-10-PCS; principal; 2019-03-04)
PROC: 0HB0XZX Excision of Scalp Skin, External Approach, Diagnostic (ICD-10-PCS; 2019-03-06)
DX: A41.50 Gram-negative sepsis, unspecified (principal); G82.50 Quadriplegia, unspecified; G93.1 Anoxic brain damage, not elsewhere classified; N39.0 Urinary tract infection, site not specified; J96.10 Chronic respiratory failure, unspecified whether with hypoxia or hypercapnia; A04.72 Enterocolitis due to Clostridium difficile, not specified as recurrent; Z99.11 Dependence on respirator [ventilator] status; R40.3 Persistent vegetative state; B95.2 Enterococcus as the cause of diseases classified elsewhere; B96.4 Proteus (mirabilis) (morganii) as the cause of diseases classified elsewhere; B35.1 Tinea unguium; D64.9 Anemia, unspecified; E03.9 Hypothyroidism, unspecified; G40.909 Epilepsy, unspecified, not intractable, without status epilepticus; K59.00 Constipation, unspecified; L73.9 Follicular disorder, unspecified; N31.9 Neuromuscular dysfunction of bladder, unspecified; R11.10 Vomiting, unspecified; R14.0 Abdominal distension (gaseous); R13.10 Dysphagia, unspecified; S14.109S Unspecified injury at unspecified level of cervical spinal cord, sequela; Y24.9XXS Unspecified firearm discharge, undetermined intent, sequela; Z93.51 Cutaneous-vesicostomy status; Z93.0 Tracheostomy status; Z93.1 Gastrostomy status; Z79.82 Long term (current) use of aspirin
CPT/HCPCS: 36415; 71045; 74018; 80048; 80202; 81001; 83605; 83735; 84145; 84443; 85025; 85610; 85730; 87040-91; 87045; 87075; 87081; 87086; 88304; 94002; 94003; 99285-25; G0378